=== PATIENT | female | born 1935 | race Caucasian/White ===

== ENCOUNTER 2020-06-19 04:24 | Emergency (ER) | payer OTHER, BC ==
[2020-06-19 04:39] VITALS: BMI 24.3
[2020-06-19 06:23] VITALS: BP 177/61; PULSE 55; TEMP 98
== END 2020-06-19 07:03 | disposition home or self-care (01) ==
LOC: FER 04:24
DX: S20.211A Contusion of right front wall of thorax, initial encounter (principal); S09.90XA Unspecified injury of head, initial encounter
CPT/HCPCS: 70450-TC; 71101-TC-RT-FY; 99285-25

== ENCOUNTER 2020-12-27 14:33 | Emergency (ER) | payer OTHER, BC ==
[2020-12-27 15:14] VITALS: BP 142/56; PULSE 78; TEMP 98.1; BMI 23.8
[2020-12-27] MEDS ORDERED: DIPHTH,PERTUSS(ACELL),TET 0.5 ML DISP.SYRIN IM ONE ×2 (16:54→16:55)
== END 2020-12-27 17:01 | disposition home or self-care (01) ==
LOC: FER 14:33
PROC: 3E0234Z Introduction of Serum, Toxoid and Vaccine into Muscle, Percutaneous Approach (ICD-10-PCS; principal; 2020-12-27)
DX: R29.6 Repeated falls (principal); W19.XXXA Unspecified fall, initial encounter
CPT/HCPCS: 70450-TC; 72125-TC; 72192-TC; 90471; 90715; 99285-25

== ENCOUNTER 2021-06-13 18:07 | Emergency (ER) | payer OTHER, BC ==
[2021-06-13 18:55] LABS: EPITHELIAL CELLS FEW /hpf
[2021-06-13 19:15] LABS: BASO % 0.3 % (0-2.0); EOS % 0.1 % (0-4.5); HEMATOCRIT 28.9 % (32.4-45.2); HEMOGLOBIN 9.6 GM/dL (10.7-15.3); LYMPH % 24.3 % (8-40); MCH 32.4 pg (25.7-33.7); MCHC 33.4 g/dl (32.0-36.0); MEAN CELL VOLUME 96.8 fl (80-96); MEAN PLT VOLUME 9.9 fl (7.5-11.1); MONO % 5.6 % (3.8-10.2); NEUT % 69.7 % (42.8-82.8); PLATELET COUNT 172 10^3/uL (134-434); RBC 2.98 M/mm3 (3.60-5.2); RDW 18.5 % (11.6-15.6); WHITE BLOOD COUNT 5.1 K/mm3 (4.0-10.0)
[2021-06-13 20:00] VITALS: BP 112/76; PULSE 55; TEMP 98.8; BMI 38.7
[2021-06-13 20:03] LABS: ALBUMIN 3.9 g/dl (3.4-5.0); BILIRUBIN,TOTAL 1.9 mg/dl (0.2-1); CALCIUM 8.5 mg/dl (8.5-10); CREATININE 0.8 mg/dl (0.55-1.3); TOT PROT 6.3 g/dl (6.4-8.2)
[2021-06-13 20:30] LABS: ANISOCYTOSIS 1+; HELMET CELLS 1+; MACROCYTOSIS 1+; OVALOCYTE 1+; PLATELET ESTIMATE NORMAL; TEAR DROP CELLS 1+
== END 2021-06-13 20:12 | disposition home or self-care (01) ==
LOC: FER 18:07
DX: S09.90XA Unspecified injury of head, initial encounter (principal); W19.XXXA Unspecified fall, initial encounter
CPT/HCPCS: 36415; 70450-TC; 72125-TC; 80053; 81003; 81015; 85025; 99285-25

== ENCOUNTER 2021-07-05 13:05 | Emergency (ER) | payer OTHER, BC ==
[2021-07-05 13:43] VITALS: BP 196/61; PULSE 60; TEMP 98.9; BMI 21.9
[2021-07-05] MEDS ORDERED: SODIUM CHLORIDE 0.9% 500 ML INFUS.BAG IV ONE (13:48)
[2021-07-05] MEDS ORDERED: ACETAMINOPHEN 325 MG TABLET (FP) PO ONE (14:00)
[2021-07-05] MEDS ORDERED: ACETAMINOPHEN 500 MG TABLET (FP) PO ONE (14:05)
[2021-07-05] MEDS ORDERED: ACETAMINOPHEN 500 MG TABLET (FP) ONE (14:06)
[2021-07-05 14:28] LABS: BILIRUBIN,TOTAL 2.5 mg/dl (0.2-1); CALCIUM 8.3 mg/dl (8.5-10); CREATININE 0.7 mg/dl (0.55-1.3); TOT PROT 6.3 g/dl (6.4-8.2)
[2021-07-05 15:55] LABS: EPITHELIAL CELLS RARE /hpf
[2021-07-05 16:13] LABS: BASO % 0.4 % (0-2.0); EOS % 0.1 % (0-4.5); HEMATOCRIT 31.8 % (32.4-45.2); HEMOGLOBIN 10.2 GM/dL (10.7-15.3); LYMPH % 29.3 % (8-40); MCH 32.1 pg (25.7-33.7); MCHC 32.1 g/dl (32.0-36.0); MEAN CELL VOLUME 99.8 fl (80-96); MEAN PLT VOLUME 11.6 fl (7.5-11.1); MONO % 7.9 % (3.8-10.2); NEUT % 62.3 % (42.8-82.8); PLATELET COUNT 210 10^3/uL (134-434); RBC 3.19 M/mm3 (3.60-5.2); RDW 18.3 % (11.6-15.6)
[2021-07-05] MEDS ORDERED: AMOX TR/POT CLAV 875MG/125MG TABLETS (FP) PO ONE (16:23)
[2021-07-05] MEDS ORDERED: AMOX TR/POT CLAV 875MG/125MG TABLETS (FP) ONE (16:26)
[2021-07-05] MEDS ORDERED: AMOX TR/POTASSIUM CLAVULANATE 400 MG/5 ML BOTTLE PO ONE (16:40)
== END 2021-07-05 17:14 ==
LOC: FER 13:05
PROC: 0HQ1XZZ Repair Face Skin, External Approach (ICD-10-PCS; principal; 2021-07-05)
DX: S02.40EB Zygomatic fracture, right side, initial encounter for open fracture (principal); W19.XXXA Unspecified fall, initial encounter
CPT/HCPCS: 36415; 70450-TC; 72125-TC; 80053; 81003; 81015; 85025; 99285-25

== ENCOUNTER 2021-07-15 15:29 | Emergency (ER) | payer OTHER, BC ==
[2021-07-15 15:35] VITALS: BP 166/90; PULSE 99; TEMP 98.3; BMI 18.3
== END 2021-07-15 16:00 | disposition home or self-care (01) ==
LOC: FER 15:29
DX: Z48.02 Encounter for removal of sutures (principal)
CPT/HCPCS: 99281-25

== ENCOUNTER 2021-08-20 15:00 | Emergency (ER) | payer OTHER, BC ==
[2021-08-20 15:26] VITALS: BP 162/83; PULSE 80; TEMP 98.3; BMI 18.2
== END 2021-08-20 17:11 | disposition home or self-care (01) ==
LOC: FER 15:00
DX: S09.90XA Unspecified injury of head, initial encounter (principal); W01.0XXA Fall on same level from slipping, tripping and stumbling without subsequent striking against object, initial encounter
CPT/HCPCS: 70450-TC; 73562-TC-RT-FY; 99284-25

== ENCOUNTER 2021-10-07 09:57 | Emergency (ER) | payer OTHER, BC ==
[2021-10-07 10:13] VITALS: BP 167/54; PULSE 79; TEMP 98.4; BMI 20.1
== END 2021-10-07 12:16 | disposition home or self-care (01) ==
LOC: FER 09:57
DX: S00.81XA Abrasion of other part of head, initial encounter (principal); W19.XXXA Unspecified fall, initial encounter
CPT/HCPCS: 70450-TC; 99284-25

== ENCOUNTER 2021-11-16 11:44 | Emergency (ER) | payer OTHER, BC ==
[2021-11-16 11:57] VITALS: TEMP 98.1; BMI 16.0
[2021-11-16 13:25] LABS: INR 1.03 (0.83-1.09); PROTHROMBIN TIME (PATIENT) 11.8 SEC (9.7-13.0)
[2021-11-16 13:27] LABS: ACTIVATED PTT 18.4 SECONDS (25.2-36.5)
[2021-11-16 13:32] LABS: ALBUMIN 3.8 g/dl (3.4-5.0); ALK PHOS 76 U/L (45-117); ANION GAP 8 MMOL/L (8-16); BILIRUBIN,TOTAL 1.5 mg/dl (0.2-1); CALCIUM 8.6 mg/dl (8.5-10); CHLORIDE 102 mmol/L (98-107); CO2 31 mmol/L (21-32); CREATININE 0.9 mg/dl (0.55-1.3); GLUCOSE,RANDOM 101 mg/dl (74-106); SGOT/AST 22 U/L (15-37); SGPT/ALT 14 U/L (13-61); SODIUM 141 mmol/L (136-145); TOT PROT 6.3 g/dl (6.4-8.2)
[2021-11-16 14:15] LABS: HEMATOCRIT 27.8 % (32.4-45.2); HEMOGLOBIN 9.4 G/dL (10.7-15.3); MCH 34.3 pg (25.7-33.7); MCHC 33.9 g/dl (32.0-36.0); MEAN PLT VOLUME 10.7 fl (7.5-11.1); PLATELET COUNT 264.2 10^3/uL (134-434); RBC 2.75 10^6/uL (3.60-5.2); RDW 17.4 % (11.6-15.6)
[2021-11-16 14:20] LABS: EPITHELIAL CELLS FEW /hpf
[2021-11-16 16:06] VITALS: BP 165/84; PULSE 70
== END 2021-11-16 17:41 | disposition home or self-care (01) ==
LOC: FER 11:44
DX: S06.5X0A Traumatic subdural hemorrhage without loss of consciousness, initial encounter (principal); W19.XXXA Unspecified fall, initial encounter; Y92.9 Unspecified place or not applicable
CPT/HCPCS: 36415; 70450-TC; 72125-TC; 80053; 81003; 81015; 84484; 85027; 85610; 85730; 86850; 86900; 86901; 87086; 93005; 99285-25; C9803-CS; U0003; U0005

== ENCOUNTER 2021-11-18 09:41 | Emergency (ER) | payer OTHER, MEDICARE, BC ==
[2021-11-18 09:56] VITALS: BP 166/75; PULSE 70; TEMP 98.5; BMI 17.4
== END 2021-11-18 10:54 | disposition home or self-care (01) ==
LOC: FER 09:41
DX: S06.5X9A Traumatic subdural hemorrhage with loss of consciousness of unspecified duration, initial encounter (principal); W18.30XA Fall on same level, unspecified, initial encounter
CPT/HCPCS: 70450-TC; 99284-25

== ENCOUNTER 2021-12-22 09:40 | Emergency (ER) | payer OTHER, MEDICARE, BC ==
[2021-12-22 10:13] VITALS: TEMP 97.6; BMI 17.3
[2021-12-22] MEDS ORDERED: LIDOCAINE HCL 2% (50ML VIAL) INF ONE (10:58)
[2021-12-22 11:00] LABS: HEMATOCRIT 31.6 % (32.4-45.2); HEMOGLOBIN 10.5 G/dL (10.7-15.3); MCH 33.8 pg (25.7-33.7); MCHC 33.4 g/dl (32.0-36.0); MEAN CELL VOLUME 101.2 fl (80-96); MEAN PLT VOLUME 11.4 fl (7.5-11.1); PLATELET COUNT 206.7 10^3/uL (134-434); RBC 3.12 10^6/uL (3.60-5.2); RDW 18.7 % (11.6-15.6); WHITE BLOOD COUNT 3.8 10^3/uL (4.0-10.8)
[2021-12-22] MEDS ORDERED: LIDOCAINE HCL 2% (20ML MULTI-DOSE VIAL) ONE (11:01)
[2021-12-22 11:03] LABS: PLATELET ESTIMATE ADEQUATE
[2021-12-22 11:06] LABS: ALBUMIN 3.8 g/dl (3.4-5.0); ALK PHOS 66 U/L (45-117); ANION GAP 5 MMOL/L (8-16); CALCIUM 8.6 mg/dl (8.5-10); CHLORIDE 101 mmol/L (98-107); CO2 28 mmol/L (21-32); CREATININE 0.7 mg/dl (0.55-1.3); GLUCOSE,RANDOM 100 mg/dl (74-106); SGOT/AST 20 U/L (15-37); SGPT/ALT 19 U/L (13-61); SODIUM 134 mmol/L (136-145); TOT PROT 6.4 g/dl (6.4-8.2)
[2021-12-22 11:10] LABS: EPITHELIAL CELLS FEW /hpf
[2021-12-22 13:13] VITALS: BP 157/66; PULSE 56; RESP 16
== END 2021-12-22 13:30 | disposition home or self-care (01) ==
LOC: FER 09:40 → SUPCPDRO 09:40 → FER 13:30
DX: S06.360A Traumatic hemorrhage of cerebrum, unspecified, without loss of consciousness, initial encounter (principal); W01.0XXA Fall on same level from slipping, tripping and stumbling without subsequent striking against object, initial encounter
CPT/HCPCS: 36415; 70450-TC; 72125-TC; 80053; 81003; 81015; 84484; 85025; 87086; 99285-25

== ENCOUNTER 2021-12-23 10:56 | Emergency (ER) | payer OTHER, MEDICARE, BC ==
[2021-12-23 11:17] VITALS: BP 132/59; PULSE 61; RESP 16; TEMP 98.5; BMI 17.3
== END 2021-12-23 12:10 | disposition home or self-care (01) ==
LOC: FER 10:56
DX: Z09 Encounter for follow-up examination after completed treatment for conditions other than malignant neoplasm (principal)
CPT/HCPCS: 70450-TC; 99284-25

== ENCOUNTER 2022-01-26 11:24 | Inpatient (IN) | payer OTHER, BC ==
[2022-01-26 11:32] VITALS: BMI 17.5
[2022-01-26] MEDS ORDERED: SODIUM CHLORIDE 500 ML IV STA (12:39)
[2022-01-26 12:48] LABS: INR 1.03 (0.83-1.09); PROTHROMBIN TIME (PATIENT) 11.8 SEC (9.7-13.0)
[2022-01-26 12:51] LABS: ACTIVATED PTT 25.3 SECONDS (25.2-36.5)
[2022-01-26 12:57] LABS: HEMATOCRIT 33.1 % (32.4-45.2); HEMOGLOBIN 11.6 G/dL (10.7-15.3); MCH 34.9 pg (25.7-33.7); MCHC 34.9 g/dl (32.0-36.0); MEAN PLT VOLUME 11.3 fl (7.5-11.1); PLATELET COUNT 239.8 10^3/uL (134-434); RBC 3.31 10^6/uL (3.60-5.2); RDW 16.7 % (11.6-15.6); WHITE BLOOD COUNT 3.9 10^3/uL (4.0-10.8)
[2022-01-26 13:02] LABS: PLATELET ESTIMATE ADEQUATE
[2022-01-26 13:04] LABS: ALBUMIN 4.3 g/dl (3.4-5.0); BILIRUBIN,TOTAL 2.3 mg/dl (0.2-1); CREATININE 0.6 mg/dl (0.55-1.3); TOT PROT 7.4 g/dl (6.4-8.2)
[2022-01-26] MEDS: busPIRone HCL 10 MG TABLET (FP) PO SCH ×2 (15:15→22:30)
[2022-01-26] MEDS: LISINOPRIL 10 MG TABLET PO SCH (15:30)
[2022-01-26] MEDS: RAMELTEON 8 MG TABLET PO SCH (22:28)
[2022-01-26] MEDS: ARIPiprazole 2 MG TABLET PO SCH (22:31)
[2022-01-27] MEDS: busPIRone HCL 10 MG TABLET (FP) PO SCH ×3 (06:49→21:35)
[2022-01-27 08:43] LABS: BILIRUBIN,TOTAL 2.9 mg/dl (0.2-1); CALCIUM 8.9 mg/dl (8.5-10); CREATININE 0.7 mg/dl (0.55-1.3); MAGNESIUM 2.2 mg/dL (1.8-2.4); TOT PROT 6.6 g/dl (6.4-8.2)
[2022-01-27 08:49] LABS: HEMATOCRIT 31.1 % (32.4-45.2); HEMOGLOBIN 10.8 G/dL (10.7-15.3); MCH 34.9 pg (25.7-33.7); MCHC 34.7 g/dl (32.0-36.0); MEAN CELL VOLUME 100.5 fl (80-96); MEAN PLT VOLUME 11.4 fl (7.5-11.1); PLATELET COUNT 226.8 10^3/uL (134-434); RBC 3.09 10^6/uL (3.60-5.2); RDW 16.3 % (11.6-15.6); WHITE BLOOD COUNT 5.5 10^3/uL (4.0-10.8)
[2022-01-27] MEDS: LISINOPRIL 10 MG TABLET PO SCH (09:43)
[2022-01-27] MEDS: DONEPEZIL HCL 10 MG TABLET (FP) PO SCH (09:43)
[2022-01-27 10:04] LABS: PLATELET ESTIMATE ADEQUATE
[2022-01-27] MEDS: RAMELTEON 8 MG TABLET PO SCH (21:34)
[2022-01-27] MEDS: ARIPiprazole 2 MG TABLET PO SCH (21:35)
[2022-01-28] MEDS: DEXTROSE 5%-0.45% SALINE 1,000 ML IV SCH (01:00)
[2022-01-28] MEDS: busPIRone HCL 10 MG TABLET (FP) PO SCH (06:51)
[2022-01-28 08:37] LABS: INR 1.09 (0.83-1.09); PROTHROMBIN TIME (PATIENT) 12.5 SEC (9.7-13.0)
[2022-01-28 08:48] LABS: ALBUMIN 3.8 g/dl (3.4-5.0); BILIRUBIN,DIRECT 0.2 mg/dL (0.0-0.2); BILIRUBIN,TOTAL 3.2 mg/dl (0.2-1); CALCIUM 8.8 mg/dl (8.5-10); CREATININE 0.7 mg/dl (0.55-1.3); MAGNESIUM 2.1 mg/dL (1.8-2.4); TOT PROT 6.4 g/dl (6.4-8.2)
[2022-01-28 09:28] LABS: BASO % 0.6 % (0-2.0); EOS % 0.8 % (0-4.5); HEMATOCRIT 31.4 % (32.4-45.2); HEMOGLOBIN 10.8 GM/dL (10.7-15.3); LYMPH % 39.2 % (8-40); MCH 33.1 pg (25.7-33.7); MCHC 34.2 g/dl (32.0-36.0); MEAN CELL VOLUME 96.6 fl (80-96); MEAN PLT VOLUME 11.2 fl (7.5-11.1); MONO % 12.2 % (3.8-10.2); NEUT % 47.2 % (42.8-82.8); PLATELET COUNT 213 10^3/uL (134-434); RBC 3.25 M/mm3 (3.60-5.2); RDW 17.2 % (11.6-15.6); WHITE BLOOD COUNT 4.1 K/mm3 (4.0-10.0)
[2022-01-28] MEDS ORDERED: LORazepam 2 MG/ML SDV VIAL IM ONE (09:45)
[2022-01-28] MEDS: DONEPEZIL HCL 10 MG TABLET (FP) PO SCH (10:22)
[2022-01-28] MEDS: LISINOPRIL 10 MG TABLET PO SCH (10:22)
[2022-01-28] MEDS: busPIRone HCL 5 MG TABLET PO SCH ×2 (15:33→22:02)
[2022-01-28] MEDS ORDERED: DOCUSATE SODIUM 100 MG CAPSULE (FP) PO PRN (20:41)
[2022-01-28] MEDS ORDERED: SENNOSIDES 8.6MG TABLET (FP) PO PRN (20:42)
[2022-01-28] MEDS: POLYETHYLENE GLYCOL (HEALTHYLAX) 3350 17 GM PACKET PO SCH (21:56)
[2022-01-28] MEDS: RAMELTEON 8 MG TABLET PO SCH (21:56)
[2022-01-28] MEDS: ARIPiprazole 2 MG TABLET PO SCH (21:56)
[2022-01-29] MEDS: busPIRone HCL 5 MG TABLET PO SCH ×3 (06:51→22:23)
[2022-01-29] MEDS: DEXTROSE 5%-0.45% SALINE 1,000 ML IV SCH (06:52)
[2022-01-29 08:35] LABS: ALBUMIN 3.6 g/dl (3.4-5.0); BILIRUBIN,TOTAL 3.3 mg/dl (0.2-1); CALCIUM 8.2 mg/dl (8.5-10); CREATININE 0.8 mg/dl (0.55-1.3)
[2022-01-29] MEDS ORDERED: POTASSIUM CHLORIDE TABS 20 MEQ TABLET.ER (FP) PO ONE (09:15)
[2022-01-29] MEDS: DONEPEZIL HCL 10 MG TABLET (FP) PO SCH (09:22)
[2022-01-29] MEDS: LISINOPRIL 10 MG TABLET PO SCH (09:22)
[2022-01-29] MEDS: POLYETHYLENE GLYCOL (HEALTHYLAX) 3350 17 GM PACKET PO SCH ×2 (09:23→22:24)
[2022-01-29 10:35] LABS: BASO % 0.5 % (0-2.0); EOS % 0.9 % (0-4.5); HEMATOCRIT 30.9 % (32.4-45.2); HEMOGLOBIN 10.5 GM/dL (10.7-15.3); LYMPH % 32.8 % (8-40); MCH 33.1 pg (25.7-33.7); MCHC 34.1 g/dl (32.0-36.0); MEAN CELL VOLUME 96.9 fl (80-96); MEAN PLT VOLUME 10.8 fl (7.5-11.1); MONO % 11.1 % (3.8-10.2); NEUT % 54.7 % (42.8-82.8); PLATELET COUNT 206 10^3/uL (134-434); RBC 3.19 M/mm3 (3.60-5.2); RDW 16.7 % (11.6-15.6); WHITE BLOOD COUNT 4.1 K/mm3 (4.0-10.0)
[2022-01-29] MEDS: D5-NS + 20 MEQ KCL - 20 MEQ/1,000 ML INFUS.BAG IV SCH (14:32)
[2022-01-29] MEDS: ARIPiprazole 2 MG TABLET PO SCH (22:23)
[2022-01-29] MEDS: RAMELTEON 8 MG TABLET PO SCH (22:24)
[2022-01-30] MEDS: busPIRone HCL 5 MG TABLET PO SCH (06:51)
[2022-01-30 08:28] LABS: ALBUMIN 4.1 g/dl (3.4-5.0); BILIRUBIN,TOTAL 4.1 mg/dl (0.2-1); CALCIUM 8.9 mg/dl (8.5-10); CREATININE 0.7 mg/dl (0.55-1.3); MAGNESIUM 2.1 mg/dL (1.8-2.4); TOT PROT 6.9 g/dl (6.4-8.2)
[2022-01-30 09:58] LABS: BASO % 0.7 % (0-2.0); EOS % 1.6 % (0-4.5); HEMATOCRIT 33.3 % (32.4-45.2); HEMOGLOBIN 11.7 GM/dL (10.7-15.3); LYMPH % 48.2 % (8-40); MCH 34.4 pg (25.7-33.7); MCHC 35.2 g/dl (32.0-36.0); MEAN CELL VOLUME 97.8 fl (80-96); MEAN PLT VOLUME 11.2 fl (7.5-11.1); MONO % 11.2 % (3.8-10.2); NEUT % 38.3 % (42.8-82.8); PLATELET COUNT 259 10^3/uL (134-434); RBC 3.41 M/mm3 (3.60-5.2); RDW 17.7 % (11.6-15.6); WHITE BLOOD COUNT 5.7 K/mm3 (4.0-10.0)
[2022-01-30] MEDS: POLYETHYLENE GLYCOL (HEALTHYLAX) 3350 17 GM PACKET PO SCH ×2 (10:07→22:11)
[2022-01-30] MEDS: LISINOPRIL 10 MG TABLET PO SCH ×2 (10:08→10:11)
[2022-01-30] MEDS: D5-NS + 20 MEQ KCL - 20 MEQ/1,000 ML INFUS.BAG IV SCH (16:24)
[2022-01-30] MEDS: RAMELTEON 8 MG TABLET PO SCH (22:11)
[2022-01-30] MEDS: OLANZapine 5 MG TABLET PO SCH (22:11)
[2022-01-31] MEDS: OLANZapine 5 MG TABLET PO SCH ×2 (09:16→22:15)
[2022-01-31] MEDS: LISINOPRIL 10 MG TABLET PO SCH (09:25)
[2022-01-31] MEDS: POLYETHYLENE GLYCOL (HEALTHYLAX) 3350 17 GM PACKET PO SCH ×3 (09:25→22:59)
[2022-01-31] MEDS: D5-NS + 20 MEQ KCL - 20 MEQ/1,000 ML INFUS.BAG IV SCH (14:37)
[2022-01-31] MEDS: RAMELTEON 8 MG TABLET PO SCH (22:15)
[2022-02-01] MEDS: POLYETHYLENE GLYCOL (HEALTHYLAX) 3350 17 GM PACKET PO SCH (09:53)
[2022-02-01] MEDS: LISINOPRIL 10 MG TABLET PO SCH (10:10)
[2022-02-01] MEDS: OLANZapine 5 MG TABLET PO SCH (10:10)
[2022-02-01 14:03] VITALS: BP 144/50; PULSE 66; RESP 16; TEMP 97.9
== END 2022-02-01 18:12 | DRG 57 ==
LOC: FER 11:24 → FM/S 13:37 → UNDOADMIN 13:53
PROVIDERS: ADMIT Internal Medicine
DX: G30.9 Alzheimer's disease, unspecified (principal); N13.30 Unspecified hydronephrosis; E44.0 Moderate protein-calorie malnutrition; E86.0 Dehydration; R29.6 Repeated falls; W18.39XA Other fall on same level, initial encounter; F02.80 Dementia in other diseases classified elsewhere, unspecified severity, without behavioral disturbance, psychotic disturbance, mood disturbance, and anxiety; E80.6 Other disorders of bilirubin metabolism; S00.83XA Contusion of other part of head, initial encounter; F32.A Depression, unspecified; G47.00 Insomnia, unspecified; R49.22 Hyponasality; K59.09 Other constipation; E87.6 Hypokalemia; I12.9 Hypertensive chronic kidney disease with stage 1 through stage 4 chronic kidney disease, or unspecified chronic kidney disease; N18.9 Chronic kidney disease, unspecified; Y92.098 Other place in other non-institutional residence as the place of occurrence of the external cause
CPT/HCPCS: 0241U-QW; 36415; 70450-TC; 71045-TC-FY; 72125-TC; 74176-TC; 76705-TC; 80053; 81003; 82248; 82607; 82746; 83735; 84439; 84443; 84484; 85025; 85610; 85730; 86480; 86780; 86850; 86900; 86901; 87086; 97116-GP; 97162-GP; 99285-25